=== PATIENT | female | born 1950 | race Caucasian/White ===

== ENCOUNTER → 2017-04-10 | Outpatient (CLI) | payer OTHER ==
[2017-04-10 10:21] LABS: ABSOLUTE EOSINOPHILS # (AUTO) 0.1 10^3/uL (0.0-0.6); ABSOLUTE LYMPHOCYTES (AUTO) 1.3 10^3/uL (0.5-4.7); ABSOLUTE MONOCYTES (AUTO) 0.7 10^3/uL (0.1-1.4); ABSOLUTE NEUT (AUTO) 2.7 10^3/uL (1.7-8.2); BASOPHILS % (AUTO) 0.6 % (0-2); EOSINOPHILS % (AUTO) 2.9 % (0-6); HEMATOCRIT 40.8 % (36.0-47.0); HEMOGLOBIN 13.9 g/dL (12.0-15.5); HGB HCT DIFFERENCE 0.9; MEAN CORPUSCULAR HEMOGLOBIN 32.4 pg (27.0-33.4); MEAN CORPUSCULAR HGB CONC 34.2 g/dL (32.0-36.0); MEAN CORPUSCULAR VOLUME 95 fl (80-97); MONOCYTES % (AUTO) 14.5 % (3-13); RED CELL DISTRIBUTION WIDTH 14.3 % (11.5-14.0); WHITE BLOOD COUNT 4.9 10^3/uL (4.0-10.5)
[2017-04-10 11:06] LABS: ALANINE AMINOTRANSFERASE 29 U/L (9-52); ALBUMIN 4.7 g/dL (3.5-5.0); ALKALINE PHOSPHATASE 108 U/L (38-126); ANION GAP 10 (5-19); ASPARTATE AMINO TRANSFERASE 33 U/L (14-36); BILIRUBIN,DIRECT 0.5 mg/dL (0.0-0.4); BILIRUBIN,TOTAL 0.6 mg/dL (0.2-1.3); BLOOD UREA NITROGEN 12 mg/dL (7-20); CALCIUM 9.7 mg/dL (8.4-10.2); CARBON DIOXIDE 28 mmol/L (22-30); CHLORIDE 98 mmol/L (98-107); CHOLESTEROL 191.32 mg/dL (0-200); Direct HDL 102 mg/dL (>40); GLUCOSE 92 mg/dL (75-110); IRON 75.4 ug/dL (37-170); POTASSIUM 4.9 mmol/L (3.6-5.0); SODIUM 136.2 mmol/L (137-145); TOTAL PROTEIN 8.1 g/dL (6.3-8.2); TRIGLYCERIDES 50 mg/dL (<150)
[2017-04-10 11:19] LABS: DIRECT LDL 73 mg/dL (<100)
== END ==
LOC: CCC 08:27
DX: I10 Essential (primary) hypertension (principal); J45.909 Unspecified asthma, uncomplicated; J44.9 Chronic obstructive pulmonary disease, unspecified; D64.9 Anemia, unspecified; E78.4 Other hyperlipidemia
CPT/HCPCS: 36415; 80053; 80061; 82728; 83036; 83540; 84443; 85025

== ENCOUNTER 2018-06-11 11:33 | Emergency (ER) | payer MEDICARE ==
[2018-06-11] MEDS ORDERED: PREDNISONE 20 MG TABLET PO ONE (11:45)
[2018-06-11] MEDS ORDERED: IPRATROPIUM/ALBUTEROL 0.5-2.5 MG/3 ML AMPUL NEB ONE (11:45)
--- NOTE | 2018-06-11 11:48 | ER Document Report ---
ED Medical Screen (RME) - General Chief Complaint: Breathing Difficulty Stated Complaint: DIFFICULTY BREATHING Time Seen by Provider: 06/11/18 11:42 Notes: 68-year-old female patient with COPD developed increased shortness of breath about 630 this morning. There is no cough associated with this. She does not think she has been running fevers. She was seen here about 5 weeks ago with a COPD exacerbation was prescribed a 3-day course of high-dose prednisone at that time. Not sure if that prescription was never filled based on review of the pharmacy reporting. She does use Advair, and ProAir air. There is some high-pitched expiratory wheezes and some expiratory wheezes heard with deep breath and cough. I have greeted and performed a rapid initial assessment of this patient. A comprehensive ED assessment and evaluation of the patient, analysis of test results and completion of the medical decision making process will be conducted by additional ED providers. TRAVEL OUTSIDE OF THE [place] IN LAST 30 DAYS: No - Related Data Allergies/Adverse Reactions: cetirizine HCl [From [employer]] Allergy (Verified 06/11/18 11:34) Past Medical History - Social History Frequency of alcohol use: None Drug Abuse: None - Past Medical History Cardiac Medical History: Reports: Hx Hypertension Pulmonary Medical History: Reports: Hx Asthma, Hx COPD Neurological Medical History: Reports: Hx Cerebrovascular Accident. Denies: Hx Seizures Endocrine Medical History: Reports: Hx Diabetes Mellitus Type 2 Renal/ Medical History: Denies: Hx Peritoneal Dialysis GI Medical History: Denies: Hx Colonoscopy - no prior colonoscopy per patient. Past Surgical History: Reports: Hx Carotid Endarterectomy - Left carotid endarterectomy. Denies: Hx Hysterectomy - Immunizations Immunizations up to date: Yes Physical Exam - Vital signs Vitals: Temp Pulse Resp BP Pulse Ox 97.9 F 100 18 152/68 H 97 06/11/18 11:39 06/11/18 11:39 06/11/18 11:39 06/11/18 11:39 06/11/18 11:39 Course - Vital Signs Vital signs: Temp Pulse Resp BP Pulse Ox 97.9 F 100 18 152/68 H 97 06/11/18 11:39 06/11/18 11:39 06/11/18 11:39 06/11/18 11:39 06/11/18 11:39 Doctor's Discharge - Discharge Referrals: STEPHEN TEJEDA NP [Primary Care Provider] - Follow up as needed
[2018-06-11 12:26] LABS: ABSOLUTE EOSINOPHILS # (AUTO) 0.2 10^3/uL (0.0-0.6); ABSOLUTE LYMPHOCYTES (AUTO) 0.9 10^3/uL (0.5-4.7); ABSOLUTE MONOCYTES (AUTO) 0.7 10^3/uL (0.1-1.4); BASOPHILS % (AUTO) 0.9 % (0-2); EOSINOPHILS % (AUTO) 5.7 % (0-6); HEMATOCRIT 38.6 % (36.0-47.0); HEMOGLOBIN 13.5 g/dL (12.0-15.5); LYMPHOCYTES % (AUTO) 22.5 % (13-45); MEAN CORPUSCULAR HEMOGLOBIN 32.7 pg (27.0-33.4); MEAN CORPUSCULAR VOLUME 94 fl (80-97); MONOCYTES % (AUTO) 17.8 % (3-13); PLATELET COUNT 350 10^3/uL (150-450); RED BLOOD COUNT 4.12 10^6/uL (3.72-5.28); RED CELL DISTRIBUTION WIDTH 14.4 % (11.5-14.0); SEGMENTED NEUTROPHILS % (AUTO) 53.1 % (42-78); TOTAL CELLS COUNTED % (AUTO) 100 %; WHITE BLOOD COUNT 3.8 10^3/uL (4.0-10.5)
--- NOTE | 2018-06-11 12:27 | ER Document Report ---
ED Respiratory Problem - General Chief Complaint: Breathing Difficulty Stated Complaint: DIFFICULTY BREATHING Time Seen by Provider: 06/11/18 11:42 Mode of Arrival: Ambulatory Information source: Patient Notes: Chief complaint: Shortness of breath History of complain:68-year-old female patient with COPD developed increased shortness of breath about 630 this morning. There is no cough associated with this. She does not think she has been running fevers. She was seen here about 5 weeks ago with a COPD exacerbation was prescribed a 3-day course of high-dose prednisone at that time. Not sure if that prescription was never filled based on review of the pharmacy reporting. Smoking about 4-5 cigarettes a day. No fever chills or other constitutional symptoms She does use Advair, and ProAir air. Onset: As above Duration: As above Severity: Moderate Quality: Wheezing Context: COPD and smoking Exacerbating factor and relieving factors: Exertion REVIEW OF SYSTEMS: CONSTITUTIONAL : Denies fever, chills, or sweats. Denies recent illness. EENT: Denies eye, ear, throat, or mouth pain or symptoms. Denies nasal or sinus congestion or discharge. Denies throat, tongue, or mouth swelling or difficulty swallowing. CARDIOVASCULAR: Denies chest pain. Denies palpitations or racing or irregular heart beat. Denies ankle edema. RESPIRATORY: Denies cough, cold, or chest congestion. Denies shortness of breath, difficulty breathing, or wheezing. GASTROINTESTINAL: Denies abdominal pain or distention. Denies nausea, vomiting , or diarrhea. Denies blood in vomitus, stools, or per rectum. Denies black, tarry stools. Denies constipation. GENITOURINARY: Denies difficulty urinating, painful urination, burning, frequency, blood in urine, or discharge. MUSCULOSKELETAL: Denies back or neck pain or stiffness. Denies joint pain or swelling. SKIN: Denies rash, lesions or sores. HEMATOLOGIC : Denies easy bruising or bleeding. LYMPHATIC: Denies swollen, enlarged glands. NEUROLOGICAL: Denies confusion or altered mental status. Denies passing out or loss of consciousness. Denies dizziness or lightheadedness. Denies headache. Denies weakness or paralysis or loss of use of either side. Denies problems with gait or speech. Denies sensory loss, numbness, or tingling. Denies seizures. PSYCHIATRIC: Denies anxiety or stress. Denies depression, suicidal ideation, or homicidal ideation. ALL OTHER SYSTEMS REVIEWED AND NEGATIVE. Dictation was performed using [employer] voice recognition software PHYSICAL EXAMINATION: GENERAL: Cachexia of chronic lung disease and in no acute distress. HEAD: Atraumatic, normocephalic. EYES: Pupils equal round and reactive to light, extraocular movements intact, sclera anicteric, conjunctiva are normal. ENT: Nares patent, oropharynx clear without exudates. Moist mucous membranes. NECK: Normal range of motion, supple without lymphadenopathy LUNGS: Breath sounds .... . Bilaterally decreased breath sounds with scattered wheezing no rales HEART: Regular rate and rhythm without murmurs ABDOMEN: Soft, nontender, nondistended abdomen. No guarding, no rebound. No masses appreciated. Musculoskeletal: Normal range of motion, no pitting or edema. No cyanosis. NEUROLOGICAL: Cranial nerves grossly intact. Normal speech, normal gait. Normal sensory, motor exams PSYCH: Normal mood, normal affect. SKIN: Warm, Dry, normal turgor, no rashes or lesions noted. TRAVEL OUTSIDE OF THE [place] IN LAST 30 DAYS: No - HPI Notes: Dictated - Related Data Allergies/Adverse Reactions: cetirizine HCl [From [employer])] Allergy (Verified 06/11/18 11:34) Past Medical History - Social History Smoking Status: Current Every Day Smoker Frequency of alcohol use: None Drug Abuse: None Lives with: Family Family History: Reviewed & Not Pertinent Patient has suicidal ideation: No Patient has homicidal ideation: No - Past Medical History Cardiac Medical History: Reports: Hx Hypertension Pulmonary Medical History: Reports: Hx Asthma, Hx COPD Neurological Medical History: Reports: Hx Cerebrovascular Accident. Denies: Hx Seizures Endocrine Medical History: Reports: Hx Diabetes Mellitus Type 2 Renal/ Medical History: Denies: Hx Peritoneal Dialysis GI Medical History: Denies: Hx Colonoscopy - no prior colonoscopy per patient. Past Surgical History: Reports: Hx Carotid Endarterectomy - Left carotid endarterectomy. Denies: Hx Hysterectomy - Immunizations Immunizations up to date: Yes Review of Systems - Review of Systems Notes: Dictated Physical Exam - Vital signs Vitals: Temp Pulse Resp BP Pulse Ox 97.9 F 100 18 152/68 H 97 06/11/18 11:39 06/11/18 11:39 06/11/18 11:39 06/11/18 11:39 06/11/18 11:39 - Notes Notes: Dictated Course - Vital Signs Vital signs: Temp Pulse Resp BP Pulse Ox 97.9 F 100 20 143/64 H 98 06/11/18 11:39 06/11/18 11:39 06/11/18 14:01 06/11/18 14:01 06/11/18 14:01 - Laboratory Result Diagrams: 06/11/18 12:05 06/11/18 12:05 Laboratory results interpreted by me: 06/11/18 06/11/18 12:05 12:05 WBC 3.8 L RDW 14.4 H Monocytes % 17.8 H Sodium 133.3 L Chloride 95 L Glucose 138 H Direct Bilirubin 0.5 H - Diagnostic Test Radiology reviewed: Image reviewed - Chest x-ray one view shows no infiltration effusion or pneumothorax chronic COPD pattern., Reports reviewed Discharge - Discharge Clinical Impression: COPD (chronic obstructive pulmonary disease) Qualifiers: COPD type: COPD with acute exacerbation Qualified Code(s): J44.1 - Chronic obstructive pulmonary disease with (acute) exacerbation Condition: Fair Disposition: HOME, SELF-CARE Instructions: Chronic Obstructive Lung Disease ([facility]) Prescriptions: Prednisone [Sterapred Ds] 1 pkg PO ASDIR PRN 12 Days [email or web address] PRN Reason: Referrals: STEPHEN TEJEDA NP [Primary Care Provider] - Follow up as needed
[2018-06-11 12:47] LABS: ALANINE AMINOTRANSFERASE 25 U/L (9-52); ALBUMIN 4.2 g/dL (3.5-5.0); ALKALINE PHOSPHATASE 75 U/L (38-126); ANION GAP 9 (5-19); ASPARTATE AMINO TRANSFERASE 36 U/L (14-36); BILIRUBIN,DIRECT 0.5 mg/dL (0.0-0.4); BILIRUBIN,TOTAL 0.7 mg/dL (0.2-1.3); BLOOD UREA NITROGEN 7 mg/dL (7-20); CALCIUM 9.6 mg/dL (8.4-10.2); CARBON DIOXIDE 29 mmol/L (22-30); CHLORIDE 95 mmol/L (98-107); GLUCOSE 138 mg/dL (75-110); POTASSIUM 4.4 mmol/L (3.6-5.0); SODIUM 133.3 mmol/L (137-145); TOTAL PROTEIN 7.3 g/dL (6.3-8.2)
--- NOTE | 2018-06-11 14:52 | RADIOLOGY REPORT (SQ) ---
EXAM DESCRIPTION: CHEST SINGLE VIEW COMPLETED DATE/TIME: 06/11/2018 2:43 pm REASON FOR STUDY: Shortness of breath shortness of breath COMPARISON: 05/09/2018 EXAM PARAMETERS: NUMBER OF VIEWS: One view. TECHNIQUE: Single frontal radiographic view of the chest acquired. RADIATION DOSE: NA LIMITATIONS: None. FINDINGS: LUNGS AND PLEURA: The lungs are hyperexpanded. There is no infiltrate or effusion. A sma ll granuloma is seen in the left lung. MEDIASTINUM AND HILAR STRUCTURES: No masses. Contour normal. HEART AND VASCULAR STRUCTURES: Heart normal in size. Normal vasculature. BONES: No acute findings. HARDWARE: None in the chest. OTHER: No other significant finding. IMPRESSION: Chronic lung changes with no acute cardiopulmonary disease. TECHNICAL DOCUMENTATION: JOB ID: [id number] [employer]- All Rights Reserved Reading location - IP/workstation name: [email or web address]
[2018-06-11 15:04] VITALS: BP 140/60
[2018-06-11] MEDS ORDERED: ALBUTEROL SULFATE HFA (90 MCG/PUFF) 200 PUFF/8.5 GM MDI IH ONE (15:16)
== END 2018-06-11 15:27 | disposition home or self-care (01) ==
LOC: ER 11:33
DX: J44.1 Chronic obstructive pulmonary disease with (acute) exacerbation (principal); R06.02 Shortness of breath; F17.200 Nicotine dependence, unspecified, uncomplicated; I10 Essential (primary) hypertension
CPT/HCPCS: 94640; 99285; 36415; 87040; 85025; 80053; 71045; A9270 ×2; J3490; J7512; J7620

== ENCOUNTER 2019-05-01 23:18 | Emergency (ER) | payer MEDICARE ==
[2019-05-01] MEDS ORDERED: IPRATROPIUM/ALBUTEROL 0.5-2.5 MG/3 ML AMPUL NEB ONE (23:54)
[2019-05-01] MEDS ORDERED: METHYLPREDNISOLONE INJ 125 MG/2 ML SDV IV ONE (23:54)
--- NOTE | 2019-05-02 00:03 | ER Document Report ---
ED Respiratory Problem - General Chief Complaint: Breathing Difficulty Stated Complaint: TROUBLE BREATHING Time Seen by Provider: 05/01/19 23:48 Primary Care Provider: STEPHEN TEJEDA NP [NURSE PRACTITIONER] - Follow up as needed Notes: Patient is a 69-year-old female that comes emergency department for chief compl aint of shortness of breath. She states that she got up to go to the bathroom, she started feeling a lot of difficulty breathing, she almost did not make it back to her bedroom, she states she then used her inhaler. She states now she actually feels a lot better. She denies chest pain, dizziness, cough, fever, nausea/vomiting. She has a history of asthma and COPD, she continues to smoke. Only other reported medical history is hypertension. TRAVEL OUTSIDE OF THE [place] IN LAST 30 DAYS: No - Related Data Allergies/Adverse Reactions: cetirizine HCl [From [employer]] Allergy (Verified 06/11/18 11:34) Past Medical History - General Information source: Patient - Social History Smoking Status: Current Every Day Smoker Smoking Education Provided: Yes - <3 min Frequency of alcohol use: None Drug Abuse: None Lives with: Family Family History: Reviewed & Not Pertinent - Past Medical History Cardiac Medical History: Reports: Hx Hypertension Pulmonary Medical History: Reports: Hx Asthma, Hx COPD Neurological Medical History: Reports: Hx Cerebrovascular Accident. Denies: Hx Seizures Endocrine Medical History: Reports: Hx Diabetes Mellitus Type 2 Renal/ Medical History: Denies: Hx Peritoneal Dialysis GI Medical History: Denies: Hx Colonoscopy - no prior colonoscopy per patient. Past Surgical History: Reports: Hx Carotid Endarterectomy - Left carotid endarterectomy. Denies: Hx Hysterectomy - Immunizations Immunizations up to date: Yes Review of Systems - Review of Systems Constitutional: No symptoms reported EENT: No symptoms reported Cardiovascular: No symptoms reported Respiratory: See HPI Gastrointestinal: No symptoms reported Genitourinary: No symptoms reported Female Genitourinary: No symptoms reported Musculoskeletal: No symptoms reported Skin: No symptoms reported Hematologic/Lymphatic: No symptoms reported Neurological/Psychological: No symptoms reported Physical Exam - Vital signs Vitals: Temp Pulse Resp BP Pulse Ox 98 F 103 H 26 H 160/112 H 96 05/01/19 23:24 05/01/19 23:24 05/01/19 23:24 05/01/19 23:24 05/01/19 23:24 - Notes Notes: GENERAL: Alert, interacts well. No acute distress. HEAD: Normocephalic, atraumatic. EYES: Pupils equal, round, and reactive to light. Extraocular movements intact. ENT: Oral mucosa moist, tongue midline. Oropharynx unremarkable. Airway patent. LUNGS: Few scattered coarse breath sounds and expiratory wheezes. No tachypnea or labored breathing. Clear lungs otherwise. HEART: Regular rate and rhythm. No murmur ABDOMEN: Soft, non-tender. Non-distended. Bowel sounds present in all 4 quadrants. GENITOURINARY: Deferred EXTREMITIES: Moves all 4 extremities spontaneously. No edema, normal radial and dorsalis pedis pulses bilaterally. No cyanosis. BACK: no cervical, thoracic, lumbar midline tenderness. No saddle anesthesia, normal distal neurovascular exam. Moves all extremities in full range of motion. NEUROLOGICAL: Alert and oriented x3. Normal speech. Cranial nerves II through XII grossly intact. PSYCH: Normal affect, normal mood. SKIN: Warm, dry, normal turgor. No rashes or lesions noted. Course - Re-evaluation Re-evalutation: On my evaluation patient is surprisingly well-appearing. She has minimal wheezing with good breath sounds. She has no tachypnea or labored breathing. She has no hypoxia on room air. No fever. No complaints otherwise. CBC, blood gas, chest x-ray, chemistry, troponin, EKG without acute findings. On reevaluation after single DuoNeb and Solu-Medrol wheezing completely resolved. Patient states she feels great and she wants to go home. Consistent with COPD exacerbation. Discussed smoking cessation, placing on steroids, discussed follow-up and return precautions. Patient and family at bedside state understanding and agreement. Stable at time of discharge. - Vital Signs Vital signs: Temp Pulse Resp BP Pulse Ox 98.3 F 91 22 H 134/68 H 95 05/02/19 01:59 05/01/19 23:24 05/02/19 01:59 05/02/19 02:00 05/02/19 01:59 - Laboratory Result Diagrams: 05/02/19 00:29 05/02/19 00:29 Laboratory results interpreted by me: 05/02/19 05/02/19 00:29 00:29 RDW 15.0 H [place] % (Auto) 18.8 H Sodium 135.4 L - EKG Interpretation by Me Additional EKG results interpreted by me: EKG shows sinus rhythm at a rate of 87, PACs are present, normal axis, no T wave inversions or ST segment changes in consecutive leads. QTC of 424. Discharge - Discharge Clinical Impression: Wheezing, COPD exacerbation Condition: Stable Disposition: HOME, SELF-CARE Additional Instructions: Your work-up is reassuring. Continue your home albuterol and Advair treatments, take the prednisone as prescribed, follow-up closely with primary care. Stop smoking. Return if you worsen including difficulty breathing, fever, passing out, chest pain, or any other concerning or worsening symptoms. Prescriptions: Prednisone [Deltasone 20 mg Tablet] 2 tab PO DAILY 5 Days #10 tablet Albuterol Sulfate [Proair HFA Inhalation Aerosol 8.5 gm MDI] 2 puff IH Q4H PRN #1 mdi PRN Reason: Referrals: STEPHEN TEJEDA NP [NURSE PRACTITIONER] - Follow up as needed
[2019-05-02 00:43] LABS: ABSOLUTE EOSINOPHILS # (AUTO) 0.4 10^3/uL (0.0-0.6); ABSOLUTE LYMPHOCYTES (AUTO) 1.6 10^3/uL (0.5-4.7); ABSOLUTE MONOCYTES (AUTO) 1.2 10^3/uL (0.1-1.4); ABSOLUTE NEUT (AUTO) 3.3 10^3/uL (1.7-8.2); BASOPHILS % (AUTO) 0.6 % (0-2); EOSINOPHILS % (AUTO) 5.6 % (0-6); HEMATOCRIT 37.7 % (36.0-47.0); HEMOGLOBIN 12.7 g/dL (12.0-15.5); LYMPHOCYTES % (AUTO) 24.1 % (13-45); MEAN CORPUSCULAR HEMOGLOBIN 31.8 pg (27.0-33.4); MEAN CORPUSCULAR HGB CONC 33.8 g/dL (32.0-36.0); MEAN CORPUSCULAR VOLUME 94 fl (80-97); MONOCYTES % (AUTO) 18.8 % (3-13); PLATELET COUNT 319 10^3/uL (150-450); SEGMENTED NEUTROPHILS % (AUTO) 50.9 % (42-78); TOTAL CELLS COUNTED % (AUTO) 100 %; WHITE BLOOD COUNT 6.5 10^3/uL (4.0-10.5)
--- NOTE | 2019-05-02 00:46 | RADIOLOGY REPORT (SQ) ---
EXAM DESCRIPTION: [facility]: XR CHEST 1 VIEW CLINICAL HISTORY: 69 years Female, shortness of breath COMPARISON: 06/11/2018 FINDINGS: Lungs are hyperinflated as on prior exam. 5 mm calcified granuloma in the lateral left lower lobe is unchanged. No acute infiltrate, effusion, or pneumothorax. Mediastinum is within normal limits for this positioning. Bony structures are unremarkable. IMPRESSION: 1. No acute pulmonary findings. 2. No change since 06/11/2018
[2019-05-02 00:56] LABS: VENOUS BLOOD BASE EXCESS -1.8 mmol/L; VENOUS BLOOD HCO3 24.3 mmol/L (20-32); VENOUS BLOOD PCO2 46.3 mmHg (35-63); VENOUS BLOOD PH 7.34 (7.30-7.42)
[2019-05-02 01:22] LABS: ANION GAP 7 (5-19); BLOOD UREA NITROGEN 13 mg/dL (7-20); CALCIUM 9.6 mg/dL (8.4-10.2); CARBON DIOXIDE 29 mmol/L (22-30); CHLORIDE 99 mmol/L (98-107); GLUCOSE 100 mg/dL (75-110)
[2019-05-02 02:27] VITALS: BP 134/68
--- NOTE | 2019-05-02 09:28 | EKG REPORT ---
SEVERITY:- OTHERWISE NORMAL ECG - SINUS RHYTHM ATRIAL PREMATURE COMPLEX : Confirmed by: Radha Eaton MD 02-May-2019 09:28:42
== END 2019-05-02 02:27 | disposition home or self-care (01) ==
LOC: ER 23:18
DX: J44.1 Chronic obstructive pulmonary disease with (acute) exacerbation (principal); F17.200 Nicotine dependence, unspecified, uncomplicated; I10 Essential (primary) hypertension; E11.9 Type 2 diabetes mellitus without complications
CPT/HCPCS: 93005; 36415; 85025; 80048; 84484; 82803; 71045; 93010; J2930; A9270; J7620

== ENCOUNTER 2019-05-09 03:41 | Emergency (ER) | payer MEDICARE ==
--- NOTE | 2019-05-09 04:33 | RADIOLOGY REPORT (SQ) ---
EXAM DESCRIPTION: XR CHEST 1 VIEW COMPLETED DATE/TME: 05/09/2019 03:53 CLINICAL HISTORY: 69 years Female, shortness of breath COMPARISON:May 02 2019 NUMBER OF VIEWS/TECHNIQUE: 1/AP FINDINGS: Increased lung volume, clear parenchyma, normal cardiac silhouette, and intact bony thorax.Old granulomatous disease. Atherosclerotic vascular disease. IMPRESSION: No acute cardiopulmonary findings.
[2019-05-09 04:40] LABS: ABSOLUTE BASOPHILS # (AUTO) 0.1 10^3/uL (0.0-0.2); ABSOLUTE EOSINOPHILS # (AUTO) 0.1 10^3/uL (0.0-0.6); ABSOLUTE LYMPHOCYTES (AUTO) 4.4 10^3/uL (0.5-4.7); ABSOLUTE MONOCYTES (AUTO) 2.3 10^3/uL (0.1-1.4); BASOPHILS % (AUTO) 0.5 % (0-2); EOSINOPHILS % (AUTO) 1.1 % (0-6); HEMATOCRIT 38.2 % (36.0-47.0); HEMOGLOBIN 12.9 g/dL (12.0-15.5); LYMPHOCYTES % (AUTO) 36.8 % (13-45); MEAN CORPUSCULAR HEMOGLOBIN 31.6 pg (27.0-33.4); MEAN CORPUSCULAR HGB CONC 33.7 g/dL (32.0-36.0); MEAN CORPUSCULAR VOLUME 94 fl (80-97); MONOCYTES % (AUTO) 19.4 % (3-13); RED BLOOD COUNT 4.07 10^6/uL (3.72-5.28); RED CELL DISTRIBUTION WIDTH 14.8 % (11.5-14.0); SEGMENTED NEUTROPHILS % (AUTO) 42.2 % (42-78); TOTAL CELLS COUNTED % (AUTO) 100 %; WHITE BLOOD COUNT 11.8 10^3/uL (4.0-10.5)
[2019-05-09] MEDS ORDERED: MAGNESIUM SULFATE/D5W 1 GM/100 ML RTUPB IV ONE (04:41)
--- NOTE | 2019-05-09 05:11 | ER Document Report ---
ED General - General Chief Complaint: Shortness Of Breath Stated Complaint: DIFFICULTY BREATHING Time Seen by Provider: 05/09/19 03:45 Primary Care Provider: ARSLAN TEJEDA MD [Primary Care Provider] - Follow up in 3-5 days Notes: Patient is a 69-year-old female with asthma and COPD that presents to the emergency department for chief complaint of shortness of breath. Patient states that she has been having flareups of her COPD recently, was seen in the ER about a week ago, and given 5 days of prednisone, but her symptoms seem to flareup around 1 AM this morning, she tried her albuterol and a breathing treatment without much improvement, so she called EMS, she is given 2 breathing treatments by EMS and she feels much better now, and her shortness of breath is completely resolved. She did not have any chest pain at any point, and denies any nausea, vomiting, fevers, chills, night sweats or productive cough. She is not on home oxygen. Overall she feels well at this time. No other complaints. Past Medical History: COPD, asthma, peripheral vascular disease Past Surgical History: Carotid endarterectomy Social History: Admits to smoking cigarettes, denies alcohol or drug use. Family History: Reviewed and noncontributory for presenting illness Allergies: Reviewed, see documented allergy list. REVIEW OF SYSTEMS: Other than noted above, the 12 point review of systems was reviewed with the pat ient and were negative, all pertinent findings are included in the HPI. PHYSICAL EXAMINATION: Vital signs reviewed, nursing noted reviewed. GENERAL: Well-appearing, well-nourished and in no acute distress. HEAD: Atraumatic, normocephalic. EYES: Eyes appear normal, extraocular movements intact, sclera anicteric, conjunctiva are normal. ENT: nares patent, oropharynx clear without exudates. Moist mucous membranes. NECK: Normal range of motion, supple without lymphadenopathy LUNGS: Diminished lung sounds, with faint wheezing, but no increased work of breathing, no respiratory distress. HEART: Regular rate and rhythm without murmurs ABDOMEN: Soft, nontender, normoactive bowel sounds. No rebound, guarding, or rigidity. No masses appreciated. EXTREMITIES: Nontender, good range of motion, no pitting or edema. NEUROLOGICAL: No focal neurological deficits. Moves all extremities sp ontaneously Motor and sensory grossly intact on exam. PSYCH: Normal mood, normal affect. SKIN: Warm, Dry, normal turgor, no rashes or lesions noted on exposed skin TRAVEL OUTSIDE OF THE [place] IN LAST 30 DAYS: No - Related Data Allergies/Adverse Reactions: cetirizine HCl [From [employer]] Allergy (Verified 06/11/18 11:34) Past Medical History - Social History Smoking Status: Current Every Day Smoker Family History: Reviewed & Not Pertinent Patient has suicidal ideation: No Patient has homicidal ideation: No - Past Medical History Cardiac Medical History: Reports: Hx Hypertension Pulmonary Medical History: Reports: Hx Asthma, Hx COPD Neurological Medical History: Reports: Hx Cerebrovascular Accident. Denies: Hx Seizures Endocrine Medical History: Reports: Hx Diabetes Mellitus Type 2 Renal/ Medical History: Denies: Hx Peritoneal Dialysis GI Medical History: Denies: Hx Colonoscopy - no prior colonoscopy per patient. Past Surgical History: Reports: Hx Carotid Endarterectomy - Left carotid endarterectomy. Denies: Hx Hysterectomy - Immunizations Immunizations up to date: Yes Physical Exam - Vital signs Vitals: Pulse Ox 100 05/09/19 03:44 Course - Re-evaluation Re-evalutation: Patient seen and examined vital signs reviewed. Laboratory data and/or imaging were ordered as appropriate for the patient's presenting symptoms and complaint, with consideration of any critical or life threatening conditions that may be associated with their obtained history and exam as noted above. Patient was treated with IV Solu-Medrol, and DuoNeb breathing treatments by EMS, her lung sounds are only mildly diminished at this point, did not feel she needs any further breathing treatments, will give IV magnesium. Results were reviewed when available and demonstrated unremarkable work-up, negative chest x-ray The patient was re-evaluated and was stable and improved Evaluation was most consistent with acute exacerbation of COPD, patient likely does needs longer steroid taper, will put her on a 15-day steroid taper, and have her follow-up with primary care. Results were discussed with the patient at this point, after careful consideration I feel that that patient can be discharged from the emergency department, the patient was educated treatments and reasons to return to the emergency department based on their presumed diagnosis as noted above, they were advised to followup with a primary care physician in 2-3 days. Patient was agreeable to plan of care. *Note is created using voice recognition software and may contain spelling, syntax or grammatical errors. Laboratory 05/09/19 05/09/19 03:55 03:55 Sodium Cancelled Potassium Cancelled Chloride Cancelled Carbon Dioxide Cancelled Anion Gap Cancelled BUN Cancelled Creatinine Cancelled Est GFR ( Amer) Cancelled Est GFR (Non-Af Amer) Cancelled Est GFR (MDRD) Non-Af Cancelled Glucose Cancelled Calcium Cancelled Total Bilirubin Cancelled Direct Bilirubin Cancelled Neonat Total Bilirubin Cancelled Neonat Direct Bilirubin Cancelled Neonat Indirect Bili Cancelled AST Cancelled ALT Cancelled Alkaline Phosphatase Cancelled Troponin I Cancelled Total Protein Cancelled Albumin Cancelled EGFR Cancelled Chest X-Ray 05/09/19 03:53 IMPRESSION: No acute cardiopulmonary findings. - Vital Signs Vital signs: Temp Pulse Resp BP Pulse Ox 97.3 F 18 135/63 H 96 05/09/19 03:58 05/09/19 04:01 05/09/19 04:01 05/09/19 04:01 - Laboratory Result Diagrams: 05/09/19 03:55 05/09/19 03:55 - EKG Interpretation by Me Additional EKG results interpreted by me: EKG demonstrates sinus rhythm with a ventricular rate of 88 bpm, normal axis, normal intervals, no evidence of acute ischemia in this EKG, compared with prior EKG from 05/02/2019, without significant change. Discharge - Discharge Clinical Impression: COPD exacerbation Condition: Stable Disposition: HOME, SELF-CARE Instructions: Chronic Obstructive Lung Disease ([facility]) Additional Instructions: Please use your Advair, and your albuterol as previously directed, I do recommend you use the albuterol for the next 3 to 5 days however at least 2 puffs 3 times daily, if not 4 times daily, and to take the steroid taper as prescribed please follow-up with your primary care physician, call for an appointment on Friday or Friday. Prescriptions: Prednisone 10 mg PO ASDIR #45 tablet Referrals: ARSLAN TEJEDA MD [Primary Care Provider] - Follow up in 3-5 days
[2019-05-09 05:22] LABS: PLATELET COUNT 258 10^3/uL (150-450)
[2019-05-09 05:23] LABS: ALBUMIN 3.6 g/dL (3.5-5.0); ALKALINE PHOSPHATASE 88 U/L (38-126); ANION GAP 5 (5-19); ASPARTATE AMINO TRANSFERASE 21 U/L (14-36); BILIRUBIN,DIRECT 0.2 mg/dL (0.0-0.4); BILIRUBIN,TOTAL 0.5 mg/dL (0.2-1.3); BLOOD UREA NITROGEN 11 mg/dL (7-20); CARBON DIOXIDE 30 mmol/L (22-30); CHLORIDE 99 mmol/L (98-107); GLUCOSE 135 mg/dL (75-110); POTASSIUM 3.8 mmol/L (3.6-5.0); TOTAL PROTEIN 6.1 g/dL (6.3-8.2)
[2019-05-09 06:17] VITALS: BP 128/64
--- NOTE | 2019-05-09 09:36 | EKG REPORT ---
SEVERITY:- ABNORMAL ECG - SINUS RHYTHM PROBABLE LEFT ATRIAL ABNORMALITY NONSPECIFIC INFERIOR ST-T CHANGES : Confirmed by: Felix Chapman MD 09-May-2019 09:35:26
== END 2019-05-09 06:09 | disposition home or self-care (01) ==
LOC: ER 03:41
DX: J44.1 Chronic obstructive pulmonary disease with (acute) exacerbation (principal); F17.210 Nicotine dependence, cigarettes, uncomplicated; I10 Essential (primary) hypertension; E11.51 Type 2 diabetes mellitus with diabetic peripheral angiopathy without gangrene; Z88.8 Allergy status to other drugs, medicaments and biological substances
CPT/HCPCS: 93005; 99285; 96365; 36415; 85025; 80053; 84484; 71045; 93010; J3475

== ENCOUNTER 2020-02-12 11:06 | Emergency (ER) | payer MEDICARE ==
[2020-02-12] MEDS ORDERED: METHYLPREDNISOLONE INJ 125 MG/2 ML SDV IV ONE (11:48)
--- NOTE | 2020-02-12 11:50 | ER Document Report ---
ED Respiratory Problem - General Chief Complaint: Breathing Difficulty Stated Complaint: DIFFICULTY BREATHING Time Seen by Provider: 02/12/20 11:33 Primary Care Provider: ARSLAN TEJEDA MD [Primary Care Provider] - Follow up as needed Mode of Arrival: Ambulatory Information source: Patient Notes: 69-year-old woman presents to the emergency department with a history of COPD/asthma. As noted she has had increased shortness of breath over the past 2 days. She has been using her home nebulizer x1 this morning, she also uses Advair and a rescue inhaler. States that she is not on steroids. She is a smoker and has continued to smoke greater than half a pack per day. She denies fever, productive cough or chest pain. TRAVEL OUTSIDE OF THE [place] IN LAST 30 DAYS: No - HPI Patient complains to provider of: COPD - Related Data Allergies/Adverse Reactions: cetirizine HCl [From [employer]] Allergy (Verified 02/12/20 13:19) Past Medical History - Social History Smoking Status: Current Every Day Smoker Family History: Reviewed & Not Pertinent - Past Medical History Cardiac Medical History: Reports: Hx Hypertension Pulmonary Medical History: Reports: Hx Asthma, Hx COPD Neurological Medical History: Reports: Hx Cerebrovascular Accident. Denies: Hx Seizures Endocrine Medical History: Reports: Hx Diabetes Mellitus Type 2 Renal/ Medical History: Denies: Hx Peritoneal Dialysis GI Medical History: Denies: Hx Colonoscopy - no prior colonoscopy per patient. Past Surgical History: Reports: Hx Carotid Endarterectomy - Left carotid endarterectomy. Denies: Hx Hysterectomy - Immunizations Immunizations up to date: Yes Review of Systems - Review of Systems Notes: Constitutional: Negative for fever. HENT: Negative for sore throat. Eyes: Negative for visual changes. Cardiovascular: Negative for chest pain. Respiratory: + shortness of breath. Gastrointestinal: Negative for abdominal pain, vomiting or diarrhea. Genitourinary: Negative for dysuria. Musculoskeletal: Negative for back pain. Skin: Negative for rash. Neurological: Negative for headaches, weakness or numbness. 10 point ROS negative except as marked above and in HPI. Physical Exam - Vital signs Vitals: Temp Pulse Resp BP Pulse Ox 98.7 F 80 14 126/59 H 97 02/12/20 11:13 02/12/20 11:13 02/12/20 11:13 02/12/20 11:13 02/12/20 11:13 - Notes Notes: PHYSICAL EXAMINATION: Physical Exam: General: Well-nourished well-developed 69-year-old female in no acute distress HEENT: NC/AT, pupils equal round and reactive to light, MM moist,nares clear, oropharynx clear, airway patent Neck: supple, no adenopathy, no masses. Good range of motion Lungs: clear, no wheezes rales or rhonchi no respiratory distress CVS: Regular rate and rhythm no murmur gallop or rub Abdomen: Soft, active, nontender, no masses, no hepatosplenomegaly Ext: No edema, clubbing or cyanosis. Neuro: Alert and responsive, moving all 4 extremities on command, cranial nerves intact, no focal findings Skin: Intact no open lesions, no rash PSYCH: Normal mood, normal affect. Course - Re-evaluation Re-evalutation: 02/12/20 13:38 Patient is doing well and in no distress, lungs are clear and no difficulty. Chest x-ray is clear, patient received Solu-Medrol in the emergency department I will continue her on a short course of outpatient prednisone. Patient seems to be aware and in agreement with this plan. - Vital Signs Vital signs: Temp Pulse Resp BP Pulse Ox 98.5 F 87 17 136/50 H 96 02/12/20 14:17 02/12/20 14:17 02/12/20 14:17 02/12/20 14:17 02/12/20 14:17 - Diagnostic Test Radiology reviewed: Image reviewed, Reports reviewed - Chest x-ray: No acute findings. Discharge - Discharge Clinical Impression: COPD exacerbation Condition: Good Disposition: HOME, SELF-CARE Instructions: Chronic Obstructive Lung Disease ([facility]) Additional Instructions: You were seen in the emergency department today for your increased difficulty breathing. Please use your inhaler and nebulizer at home continue the Advair as previously prescribed. You are also given a prescription today for short course of prednisone. Please follow-up with your primary care doctor early next week for recheck if you have any difficulty. If your symptoms are worsening and if you have other concerns you may return to the emergency department for further evaluation and treatment HOME CARE INSTRUCTIONS & INFORMATION: Thank you for choosing us for your medical needs. We hope you're satisfied with the care you received. After you leave, you must properly care for your problem and, at the same time, observe its progress. Any condition can change. Some illnesses can change rapidly over hours or days. If your condition worsens, return to the Emergency Department or see your physician promptly. ABOUT YOUR X-RAYS AND EKG'S: If you had an EKG or X-rays taken, they have been read by the Emergency Physician. The X-rays and EKG's will also be read by a Radiologist or Operations Research Engineer within 24 hours. If discrepancies are noted, you will be notified by telephone. Please be certain the ED has a correct telephone number & address where you can be reached. Also, realize that some fractures or abnormalities do not show up on initial X-rays. If your symptoms continue, see your physician. ABOUT YOUR LABORATORY TEST: If you had laboratory tests, the results have been reviewed by the Emergency Physician. Some test results (for example cultures) may not be available for several days. You will be contacted if any test result shows you need additional treatment. Please be certain the ED has a correct telephone number and address where you can be reached. ABOUT YOUR MEDICATIONS: You will receive instructions on how to take your medicine on the prescription label you receive. Additional information may be provided by the Pharmacy. If you have questions afterwards, call the ED for clarification or further instructions. Some prescribed medications may cause drowsiness. Do not perform tasks such as driving a car or operating machinery without consulting your Pharmacist. If you feel you need a refill of pain medication, your condition will need re-evaluation. Please do not call for a refill of any medication. ABOUT YOUR SIGNATURE: Signature of this document acknowledges to followin. Understanding that you received emergency treatment and that you may be released before al medical problems are known or treated. Please be certain th e ED has a correct phone number & address where you can be reached. 2. Acknowledgement that you will arrange for follow-up care as recommended. 3. Authorization for the Emergency Physician to provide information to your follow-up Physician in order to maximize your care. AT ANY TIME, IF YOUR SYMPTOMS CHANGE SIGNIFICANTLY OR WORSEN OR YOU DEVELOP NEW SYMPTOMS, RETURN TO THE EMERGENCY DEPARTMENT IMMEDIATELY FOR RE-EVALUATION. OUR GOAL IS TO PROVIDE EXCELLENT MEDICAL CARE! WE HOPE THAT WE HAVE MET YOUR EXPECTATIONS DURING YOUR EMERGENCY DEPARTMENT VISIT AND THAT YOU FEEL YOU HAVE RECEIVED EXCELLENT CARE! Prescriptions: Prednisone [Deltasone 20 mg Tablet] 1 tab PO BID 5 Days #10 tablet Forms: Return to Work Referrals: ARSLAN TEJEDA MD [Primary Care Provider] - Follow up as needed
--- NOTE | 2020-02-12 12:48 | RADIOLOGY REPORT (SQ) ---
EXAM DESCRIPTION: CHEST 2 VIEWS IMAGES COMPLETED DATE/TIME: 02/12/2020 12:19 pm REASON FOR STUDY: Shortness of breath COMPARISON: 05/09/2019 NUMBER OF VIEWS: Two view. TECHNIQUE: Frontal and lateral radiographic views of the chest acquired. LIMITATIONS: None. FINDINGS: LUNGS AND PLEURA: Calcified granuloma left lower lobe. No evidence of pneumonia or pulmon angel edema. No pleural effusion. Attenuated blood vessels and flattened juliocesar-diaphragms. MEDIASTINUM AND HILAR STRUCTURES: No masses. No contour abnormalities. HEART AND VASCULAR STRUCTURES: Heart normal in size and contour. No evidence for failure. BONES: No acute findings. HARDWARE: None in the chest. OTHER: No other significant finding. IMPRESSION: COPD. NO ACUTE RADIOGRAPHIC FINDING IN THE CHEST. TECHNICAL DOCUMENTATION: JOB ID: [id number] 2010 [employer]- All Rights Reserved Reading location - IP/workstation name: [email or web address]
[2020-02-12 14:19] VITALS: BP 136/50
== END 2020-02-12 14:17 | disposition home or self-care (01) ==
LOC: ER 11:06
DX: J44.1 Chronic obstructive pulmonary disease with (acute) exacerbation (principal); F17.200 Nicotine dependence, unspecified, uncomplicated; I10 Essential (primary) hypertension; E11.9 Type 2 diabetes mellitus without complications; Z86.73 Personal history of transient ischemic attack (TIA), and cerebral infarction without residual deficits
CPT/HCPCS: 99285; 96374; 71046; J2930

== ENCOUNTER 2020-03-01 19:29 | Emergency (ER) | payer MEDICARE ==
--- NOTE | 2020-03-01 20:16 | RADIOLOGY REPORT (SQ) ---
EXAM DESCRIPTION: Portable chest x-ray CLINICAL HISTORY: 69 years Female sob COMPARISON: Chest x-ray 02/12/2020. TECHNIQUE: Upright portable chest x-ray FINDINGS: Cardiomediastinal silhouette is small. Hyperinflation consistent with COPD/emphysema. Small calcified granuloma in the lingula. No acute lung or pleural abnormalities. Recent chest x-ray from 02/12/2020 demonstrated interstitial prominence, pneumonia versus CHF and this appears radiographically resolved. IMPRESSION: Resolution of previous abnormalities. Emphysema. No acute findings.
[2020-03-01 20:18] LABS: ABSOLUTE EOSINOPHILS # (AUTO) 0.1 10^3/uL (0.0-0.6); ABSOLUTE LYMPHOCYTES (AUTO) 2.8 10^3/uL (0.5-4.7); ABSOLUTE MONOCYTES (AUTO) 1.3 10^3/uL (0.1-1.4); ABSOLUTE NEUT (AUTO) 1.8 10^3/uL (1.7-8.2); BASOPHILS % (AUTO) 0.5 % (0-2); EOSINOPHILS % (AUTO) 1.4 % (0-6); HEMATOCRIT 36.3 % (36.0-47.0); HEMOGLOBIN 12.6 g/dL (12.0-15.5); LYMPHOCYTES % (AUTO) 46.7 % (13-45); MEAN CORPUSCULAR HEMOGLOBIN 32.6 pg (27.0-33.4); MEAN CORPUSCULAR HGB CONC 34.7 g/dL (32.0-36.0); MEAN CORPUSCULAR VOLUME 94 fl (80-97); MONOCYTES % (AUTO) 21.6 % (3-13); PLATELET COUNT 326 10^3/uL (150-450); RED BLOOD COUNT 3.87 10^6/uL (3.72-5.28); RED CELL DISTRIBUTION WIDTH 14.4 % (11.5-14.0); SEGMENTED NEUTROPHILS % (AUTO) 29.8 % (42-78); TOTAL CELLS COUNTED % (AUTO) 100 %; WHITE BLOOD COUNT 5.9 10^3/uL (4.0-10.5)
[2020-03-01 20:34] LABS: ALBUMIN 3.6 g/dL (3.5-5.0); ALKALINE PHOSPHATASE 74 U/L (38-126); ASPARTATE AMINO TRANSFERASE 24 U/L (14-36); BILIRUBIN,TOTAL 0.4 mg/dL (0.2-1.3); BLOOD UREA NITROGEN 10 mg/dL (7-20); CALCIUM 9.2 mg/dL (8.4-10.2); GLUCOSE 112 mg/dL (75-110); TOTAL PROTEIN 6.5 g/dL (6.3-8.2)
[2020-03-01 20:39] LABS: ANION GAP 5 (5-19); CARBON DIOXIDE 29 mmol/L (22-30); CHLORIDE 96 mmol/L (98-107)
[2020-03-01] MEDS ORDERED: IPRATROPIUM/ALBUTEROL 0.5-2.5 MG/3 ML AMPUL NEB ONE (21:03)
[2020-03-01 21:10] LABS: APPEARANCE,URINE SLIGHTLY-CLOUDY; BILIRUBIN,URINE NEGATIVE (NEGATIVE); COLOR,URINE YELLOW; GLUCOSE, URINE NEGATIVE (NEGATIVE); KETONES,URINE NEGATIVE (NEGATIVE); LEUKOCYTE ESTERASE,URINE NEGATIVE (NEGATIVE); NITRITE,URINE NEGATIVE (NEGATIVE); PROTEIN,URINE NEGATIVE (NEGATIVE); URINE SPECIFIC GRAVITY 1.006; UROBILINOGEN,URINE NEGATIVE mg/dL (<2.0)
--- NOTE | 2020-03-01 21:38 | ER Document Report ---
ED General - General Chief Complaint: Shortness Of Breath Stated Complaint: SHORTNESS OF BREATH Time Seen by Provider: 03/01/20 20:22 Primary Care Provider: CHARU COHEN MD [ACTIVE STAFF] - Follow up as needed VILMA COLLINS MD [COMMUNITY BASED STAFF] - Follow up as needed ARSLAN TEJEDA MD [Primary Care Provider] - Follow up as needed Mode of Arrival: Medic Information source: Patient TRAVEL OUTSIDE OF THE [place] IN LAST 30 DAYS: No - HPI Onset: This evening Onset/Duration: Gradual Quality of pain: No pain Severity: Moderate Pain Level: Denies Associated symptoms: Nonproductive cough Exacerbated by: Coughing Relieved by: Other - breathing treatments Similar symptoms previously: Yes - with her COPD Recently seen / treated by doctor: No Notes: 69 year old female with a history of COPD, HTN, HLD, prior CVA here in the ER for shortness of breath and trouble breathing in the setting of running out of albuterol for her nebulizer. The patient denies recent fevers, chills, sweats, nausea, vomiting, chest pain, productive cough. The patient was given a duoneb by EMS and 125mg of Solumedrol with improvement of her symptoms prior to Er arrival. The patient was resting comfortably on my arrival to her ER room with no increased work of breathing and no wheezing. - Related Data Allergies/Adverse Reactions: cetirizine HCl [From [facility]] Allergy (Verified 03/01/20 19:36) Past Medical History - General Information source: Patient - Social History Smoking Status: Current Every Day Smoker Frequency of alcohol use: None Drug Abuse: None Family History: Reviewed & Not Pertinent Patient has suicidal ideation: No Patient has homicidal ideation: No - Past Medical History Cardiac Medical History: Reports: Hx Hypercholesterolemia, Hx Hypertension Pulmonary Medical History: Reports: Hx Asthma, Hx COPD Neurological Medical History: Reports: Hx Cerebrovascular Accident. Denies: Hx Seizures Endocrine Medical History: Reports: Hx Diabetes Mellitus Type 2 Renal/ Medical History: Denies: Hx Peritoneal Dialysis GI Medical History: Denies: Hx Colonoscopy - no prior colonoscopy per patient. Past Surgical History: Reports: Hx Carotid Endarterectomy - Left carotid endarterectomy. Denies: Hx Hysterectomy - Immunizations Immunizations up to date: Yes Review of Systems - Review of Systems Constitutional: No symptoms reported EENT: No symptoms reported Cardiovascular: No symptoms reported Respiratory: Cough, Short of breath, Wheezing Gastrointestinal: No symptoms reported Genitourinary: No symptoms reported Female Genitourinary: No symptoms reported Musculoskeletal: No symptoms reported Skin: No symptoms reported Hematologic/Lymphatic: No symptoms reported Neurological/Psychological: No symptoms reported -: Yes All other systems reviewed and negative Physical Exam - Vital signs Vitals: Pulse Ox 98 03/01/20 19:30 - Notes Notes: GENERAL: Well-appearing, well-nourished and in no acute distress. HEAD: Atraumatic, normocephalic. EYES: Pupils equal round and reactive to light, extraocular movements intact, sclera anicteric, conjunctiva are normal. ENT: External ears normal, nares patent, oropharynx clear without exudates. Moist mucous membranes. NECK: Normal range of motion, supple without lymphadenopathy or JVD. LUNGS: Breath sounds clear to auscultation bilaterally and equal. No wheezes rales or rhonchi. HEART: Regular rate and rhythm without murmurs, rubs or gallops. ABDOMEN: Soft, nontender, normoactive bowel sounds. No guarding, no rebound. No masses appreciated. EXTREMITIES: Normal range of motion, no pitting or edema. No clubbing or cyanosis. NEUROLOGICAL: Cranial nerves II through XII grossly intact. Normal speech, normal gait. PSYCH: Normal mood, normal affect. SKIN: Warm, Dry, normal turgor, no rashes or lesions noted. Course - Re-evaluation Re-evalutation: 03/01/20 21:50 The patient is here in the ER for shortness of breath in the setting of running out of her neb treatments at home. EMS gave one neb and a dose of solumedrol. The patient had no wheezing in the ER when I evaluated the patient but she still felt somewhat short of breath so another neb was given in the ER. The patient had unremarkable labs and a clear chest xray. Patient requested scripts for neb treatments which she was given along with a 4 day course of prednisone. The patient was told to follow up with her PCP and to consider follow up with a Bag Filler Machine Operator. Patient is already taking Advair. - Vital Signs Vital signs: Temp Pulse Resp BP Pulse Ox 98.1 F 28 H 128/47 H 96 03/01/20 19:36 03/01/20 20:00 03/01/20 20:01 03/01/20 20:01 - Laboratory Result Diagrams: 03/01/20 19:48 03/01/20 19:48 Laboratory results interpreted by me: 03/01/20 03/01/20 03/01/20 19:48 19:48 20:37 RDW 14.4 H Lymph % (Auto) 46.7 H [place] % (Auto) 21.6 H Seg Neutrophils % 29.8 L Sodium 129.6 L Chloride 96 L Glucose 112 H Urine Ascorbic Acid 40 H - Diagnostic Test Radiology reviewed: Image reviewed, Reports reviewed - EKG Interpretation by Me EKG shows normal: Sinus rhythm, Ransom, Intervals, QRS Complexes Rate: Normal Rhythm: NSR Additional EKG results interpreted by me: 03/01/20 21:45 multiple premature atrial complexes Discharge - Discharge Clinical Impression: Shortness of breath COPD (chronic obstructive pulmonary disease) Qualifiers: COPD type: unspecified COPD Qualified Code(s): J44.9 - Chronic obstructive pulmonary disease, unspecified Condition: Stable Disposition: HOME, SELF-CARE Instructions: Chronic Obstructive Lung Disease ([facility]) Additional Instructions: Take prednisone as prescribed and use breathing treatments as needed as prescribed. Follow up with your primary care doctor and consider follow up with a Bag Filler Machine Operator. Prescriptions: Prednisone [Deltasone 20 mg Tablet] 40 mg PO DAILY 4 Days #8 tablet Ipratropium/Albuterol Sulfate [Duoneb 3 ml Ampul] 3 ml NEB RTQ4 30 Days #1 vial.neb Referrals: ARSLAN TJEEDA MD [Primary Care Provider] - Follow up as needed CHARU COHEN MD [ACTIVE STAFF] - Follow up as needed VILMA COLLINS MD [COMMUNITY BASED STAFF] - Follow up as needed
[2020-03-01 22:20] VITALS: BP 140/72
--- NOTE | 2020-03-02 09:58 | EKG REPORT ---
SEVERITY:- ABNORMAL ECG - SINUS RHYTHM MULTIPLE ATRIAL PREMATURE COMPLEXES PROBABLE LEFT ATRIAL ABNORMALITY : Confirmed by: China Herring 02-Mar-2020 09:58:21
== END 2020-03-01 22:21 | disposition home or self-care (01) ==
LOC: ER 19:29
DX: J43.9 Emphysema, unspecified (principal); J45.909 Unspecified asthma, uncomplicated; I10 Essential (primary) hypertension; R06.02 Shortness of breath; F17.200 Nicotine dependence, unspecified, uncomplicated; E11.9 Type 2 diabetes mellitus without complications; Z88.8 Allergy status to other drugs, medicaments and biological substances
CPT/HCPCS: 93005; 94640; 99285; 36415; 85025; 80053; 81001; 84484; 71045; 93010; A9270; J7620

== ENCOUNTER 2020-03-22 01:26 | Inpatient (IN) | payer MEDICARE ==
--- NOTE | 2020-03-22 03:23 | ER Document Report ---
ED General - General Chief Complaint: Shortness Of Breath Stated Complaint: DIFFICULTY BREATHING Time Seen by Provider: 03/22/20 02:57 Primary Care Provider: ARSLAN TEJEDA MD [Primary Care Provider] - Follow up as needed Mode of Arrival: Medic Information source: Patient, Emergency Med Personnel Notes: 03/22/20 01:47 - ED Nursing Note by CRISTÓBAL VALLES Acct Num: [id number] : 1950 Patient Age: 70 Pt placed on dice person and blood drawn per sepsis protocol. Pt reports relief from SOB after A/a neb treatment. Pt gowned and pending provider evaluation. my notes 70-year-old female arrives by EMS after she woke around midnight with severe shortness of breath and paroxysmal cough. She has a history of hy pertension and COPD and takes Advair Norvasc lovastatin Atrovent routinely. She had 101.4 temperature with a lactic acid of 0.5 per EMS and was given 2 albuterol and Atrovent Combivent treatment prior to arrival as well as 125 mg Solu-Medrol IV. Patient was much improved upon arrival with pulse 120. Tylenol was also given per EMS 975. Patient denies any coronavirus exposure. She has had a history of pneumonia in the past. She feels much better at my exam at 0 315 TRAVEL OUTSIDE OF THE [place] IN LAST 30 DAYS: No - HPI Onset: Just prior to arrival Onset/Duration: Sudden, Better Quality of pain: No pain Severity: Mild Pain Level: 1 Associated symptoms: Shortness of breath Exacerbated by: Deep breathing Relieved by: Other - DuoNeb treatments Similar symptoms previously: No Recently seen / treated by doctor: No - Related Data Allergies/Adverse Reactions: cetirizine HCl [From [facility]] Allergy (Verified 03/01/20 19:36) Past Medical History - General Information source: Patient, Emergency Med Personnel - Social History Smoking Status: Current Every Day Smoker Cigarette use (# per day): Yes Chew tobacco use (# tins/day): No Smoking Education Provided: Yes Frequency of alcohol use: None Drug Abuse: None Family History: Reviewed & Not Pertinent Patient has suicidal ideation: No Patient has homicidal ideation: No - Past Medical History Cardiac Medical History: Reports: Hx Hypercholesterolemia, Hx Hypertension Pulmonary Medical History: Reports: Hx Asthma, Hx COPD Neurological Medical History: Reports: Hx Cerebrovascular Accident. Denies: Hx Seizures Endocrine Medical History: Reports: Hx Diabetes Mellitus Type 2 Renal/ Medical History: Denies: Hx Peritoneal Dialysis GI Medical History: Denies: Hx Colonoscopy - no prior colonoscopy per patient. Past Surgical History: Reports: Hx Carotid Endarterectomy - Left carotid endarterectomy. Denies: Hx Hysterectomy - Immunizations Immunizations up to date: Yes Review of Systems - Review of Systems Constitutional: See HPI, Fever Respiratory: See HPI - Cough, Short of breath Physical Exam - Vital signs Vitals: Temp 100.0 F 03/22/20 01:27 - General General appearance: Alert - HEENT Head: Normocephalic, Atraumatic Eyes: Normal Pupils: PERRL Mucous membranes: Normal Pharynx: Normal Neck: Normal - Respiratory Respiratory status: No respiratory distress Chest status: Nontender Breath sounds: Normal Chest palpation: Normal - Cardiovascular Rhythm: Regular Heart sounds: Normal auscultation Murmur: No - Abdominal Inspection: Normal Distension: No distension - Genitourinary Bimanuel exam: Other - deferred - Back Back: Normal - Extremities General upper extremity: Normal inspection General lower extremity: Normal inspection - Neurological Neuro grossly intact: Yes Cognition: Normal Orientation: AAOx4 Audrey Coma Scale Eye Opening: Spontaneous [place]xton Coma Scale Verbal: Oriented Audrey Coma Scale Motor: Obeys Commands Paxton Coma Scale Total: 15 Speech: Normal Motor strength normal: LUE, RUE, LLE, RLE Sensory: Normal - Psychological Associated symptoms: Normal affect - Skin Skin Temperature: Warm Skin Color: Normal Course - Vital Signs Vital signs: Temp Pulse Resp BP Pulse Ox 100.0 F 22 H 101/63 94 03/22/20 01:36 03/22/20 06:01 03/22/20 06:01 03/22/20 06:01 - Laboratory Result Diagrams: 03/22/20 01:43 03/22/20 01:43 Laboratory results interpreted by me: 03/22/20 03/22/20 03/22/20 01:43 01:43 01:43 WBC 11.3 H Hgb 11.8 L Hct 34.9 L RDW 14.5 H Lymph % (Auto) 11.4 L [place] % (Auto) 18.8 H Absolute Monos (auto) 2.1 H Sodium 128.8 L Creatinine 0.49 L Glucose 192 H NT-Pro-B Natriuret Pep 198 H Albumin 3.3 L Critical Care Note - Critical Care Note Comments: I discussed this case with Dr. Davey Tidwell at 0 550 and he advised admission. He will see the patient in the room. Discharge - Discharge Clinical Impression: Pneumonia Qualifiers: Pneumonia type: due to unspecified organism Laterality: left Lung location: lower lobe of lung Qualified Code(s): J18.9 - Pneumonia, unspecified organism Condition: Good Disposition: ADMITTED INPATIENT Admitting Provider: Dr. Davey Tidwell Unit Admitted: IMCU Referrals: ARSLAN TEJEDA MD [Primary Care Provider] - Follow up as needed
[2020-03-22] MEDS ORDERED: IPRATROPIUM/ALBUTEROL 0.5-2.5 MG/3 ML AMPUL NEB ONE (03:30)
[2020-03-22 03:40] LABS: ABSOLUTE LYMPHOCYTES (AUTO) 1.3 10^3/uL (0.5-4.7); ABSOLUTE MONOCYTES (AUTO) 2.1 10^3/uL (0.1-1.4); ABSOLUTE NEUT (AUTO) 7.8 10^3/uL (1.7-8.2); BASOPHILS % (AUTO) 0.3 % (0-2); EOSINOPHILS % (AUTO) 0.1 % (0-6); HEMATOCRIT 34.9 % (36.0-47.0); HEMOGLOBIN 11.8 g/dL (12.0-15.5); LYMPHOCYTES % (AUTO) 11.4 % (13-45); MEAN CORPUSCULAR HEMOGLOBIN 31.8 pg (27.0-33.4); MEAN CORPUSCULAR HGB CONC 33.9 g/dL (32.0-36.0); MEAN CORPUSCULAR VOLUME 94 fl (80-97); MONOCYTES % (AUTO) 18.8 % (3-13); PLATELET COUNT 263 10^3/uL (150-450); RED BLOOD COUNT 3.72 10^6/uL (3.72-5.28); RED CELL DISTRIBUTION WIDTH 14.5 % (11.5-14.0); SEGMENTED NEUTROPHILS % (AUTO) 69.4 % (42-78); TOTAL CELLS COUNTED % (AUTO) 100 %; WHITE BLOOD COUNT 11.3 10^3/uL (4.0-10.5)
[2020-03-22 03:49] LABS: ALBUMIN 3.3 g/dL (3.5-5.0); ALKALINE PHOSPHATASE 70 U/L (38-126); ANION GAP 5 (5-19); ASPARTATE AMINO TRANSFERASE 27 U/L (14-36); BILIRUBIN,DIRECT 0.1 mg/dL (0.0-0.4); BILIRUBIN,TOTAL 0.7 mg/dL (0.2-1.3); BLOOD UREA NITROGEN 8 mg/dL (7-20); CALCIUM 8.9 mg/dL (8.4-10.2); CARBON DIOXIDE 24 mmol/L (22-30); CHLORIDE 100 mmol/L (98-107); GLUCOSE 192 mg/dL (75-110); POTASSIUM 3.9 mmol/L (3.6-5.0); TOTAL PROTEIN 6.6 g/dL (6.3-8.2)
[2020-03-22 04:00] LABS: CREATINE KINASE MB 0.58 ng/mL (<4.55); NT PRO BNP 198 pg/mL (<125)
[2020-03-22 04:01] LABS: TROPONIN I < 0.012 ng/mL
--- NOTE | 2020-03-22 05:02 | RADIOLOGY REPORT (SQ) ---
CLINICAL INDICATION: sob. TECHNIQUE: A single portable AP view was obtained of the chest at 0416 hours. COMPARISON: March 01, 2020. FINDINGS: The cardiomediastinal silhouette is prominent but stable. The lungs demonstrate patchy airspace disease left lung base, new from prior. This is on a background of chronic change. No evidence of effusion or pneumothorax. Old granulomatous disease. Laxity in the shoulders. IMPRESSION: Left basilar airspace disease, new from prior and likely pneumonia.
[2020-03-22] MEDS ORDERED: CEFTRIAXONE INJ 1000 MG VIAL IV ONE (05:57)
[2020-03-22] MEDS ORDERED: AZITHROMYCIN INJ 500 MG VIAL IV ONE (05:58)
[2020-03-22] MEDS ORDERED: ONDANSETRON HCL INJ/PF 4 MG/2 ML SDV IV PRN ×2 (06:12→14:00)
[2020-03-22] MEDS ORDERED: ACETAMINOPHEN 325 MG TABLET PO PRN (06:12)
--- NOTE | 2020-03-22 06:25 | PDOC H&P ---
History of Present Illness Admission Date/PCP: ARSLAN TEJEDA MD History of Present Illness: SANTO MANDUJANO is a 70 year old female with a history of hypertension, hyperlipidemia, and COPD who presents with shortness of breath. She said it happened around midnight when she got up to go to the bathroom. She said when she went to bed and for several days preceding she felt fine and in her usual state of health. She had an elevated temperature in the ER but she denies having had a fever at home. She denies aspirating or having a history of aspiration. She apparently had a little bit of wheezing when she first came in but after couple of breathing treatments she says she is breathing fine. She is on room air. She does not use oxygen at home. Chest x-ray showed suspicion of a left lower lobe opacity. Past Medical History Cardiac Medical History: Reports: Hyperlipidema, Hypertension Pulmonary Medical History: Reports: Asthma, Chronic Obstructive Pulmonary Disease (COPD) Neurological Medical History: Denies: Seizures Endocrine Medical History: Reports: Diabetes Mellitus Type 2 Past Surgical History Past Surgical History: Reports: Carotid Endarterectomy - Left carotid endarterectomy Denies: Hysterectomy Social History Smoking Status: Current Every Day Smoker Frequency of Alcohol Use: None Hx Recreational Drug Use: No Hx Prescription Drug Abuse: No Family History Family History: Reviewed & Not Pertinent, Hyperlipidemia, Hypertension, Thyroid Disfunction Parental Family History Reviewed: Yes Children Family History Reviewed: Yes Sibling(s) Family History Reviewed.: Yes Medication/Allergy Home Medications: Albuterol Sulfate [Albuterol Sulfate Hfa] 2 puff IH ASDIR PRN 03/23/15 Amlodipine Besylate [Norvasc 10 mg Tablet] 1 tab PO DAILY 03/23/15 Fluticasone/Salmeterol [Advair 250-50 Diskus 28 dose] 1 puff IH BID 03/23/15 Lovastatin 40 mg PO QHS #30 tablet 03/25/15 Prednisone 10 mg PO ASDIR #45 tablet 05/09/19 Prednisone [Deltasone 20 mg Tablet] 1 tab PO BID 5 Days #10 tablet 02/12/20 Ipratropium/Albuterol Sulfate [Duoneb 3 ml Ampul] 3 ml NEB RTQ4 30 Days #1 vial.neb 03/01/20 Prednisone [Deltasone 20 mg Tablet] 40 mg PO DAILY 4 Days #8 tablet 03/01/20 Allergies/Adverse Reactions: cetirizine HCl [From yrte] Allergy (Verified 03/01/20 19:36) Review of Systems All systems: reviewed and no additional remarkable complaints except as stated - All systems were reviewed and were negative except as noted in the HPI Physical Exam Vital Signs: Temp Pulse Resp BP Pulse Ox 100.0 F 30 H 142/107 H 96 03/22/20 01:36 03/22/20 01:36 03/22/20 01:36 03/22/20 01:36 Intake & Output 03/20/20 03/21/20 03/22/20 06:59 06:59 06:59 Weight 39.6 kg General appearance: PRESENT: no acute distress, cooperative, disheveled, hard of hearing, thin Head exam: PRESENT: atraumatic, normocephalic Eye exam: PRESENT: EOMI, PERRLA. ABSENT: conjunctival injection, nystagmus, scleral icterus Ear exam: PRESENT: normal external ear exam Mouth exam: PRESENT: moist, neck supple Teeth exam: PRESENT: edentulous Throat exam: ABSENT: post pharyngeal erythema Neck exam: PRESENT: full ROM. ABSENT: carotid bruit, JVD, lymphadenopathy, meningismus, tenderness, thyromegaly Respiratory exam: PRESENT: clear to auscultation julio, decreased breath sounds, symmetrical, unlabored. ABSENT: accessory muscle use, chest wall tenderness, crackles, prolonged expiratory phas, rhonchi, tachypnea, wheezes Cardiovascular exam: PRESENT: RRR, +S1, +S2 Pulses: PRESENT: normal carotid pulses Vascular exam: PRESENT: normal capillary refill GI/Abdominal exam: PRESENT: normal bowel sounds, soft. ABSENT: distended, guarding, rebound, tenderness Extremities exam: ABSENT: clubbing, pedal edema Musculoskeletal exam: PRESENT: normal inspection. ABSENT: deformity Neurological exam: PRESENT: alert, awake, oriented to person, oriented to place, oriented to situation, CN II-XII grossly intact. ABSENT: motor sensory deficit Psychiatric exam: PRESENT: appropriate affect, normal mood Skin exam: PRESENT: dry, warm Results Laboratory Results: 03/22/20 01:43 03/22/20 01:43 03/22/20 03/22/20 01:43 01:43 WBC 11.3 H RBC 3.72 Hgb 11.8 L Hct 34.9 L MCV 94 MCH 31.8 MCHC 33.9 RDW 14.5 H Plt Count 263 Seg Neutrophils % 69.4 Sodium 128.8 L Potassium 3.9 Chloride 100 Carbon Dioxide 24 Anion Gap 5 BUN 8 Creatinine 0.49 L Est GFR ( Amer) > 60 Glucose 192 H Calcium 8.9 Total Bilirubin 0.7 AST 27 Alkaline Phosphatase 70 Total Protein 6.6 Albumin 3.3 L 03/22/20 01:43 CK-MB (CK-2) 0.58 Troponin I < 0.012 NT-Pro-B Natriuret Pep 198 H Impressions: Chest X-Ray 03/22/20 03:31 IMPRESSION: Left basilar airspace disease, new from prior and likely pneumonia. Assessment and Plan - Diagnosis (1) Sepsis Qualifiers: Sepsis type: sepsis due to unspecified organism Sepsis acute organ dysfunction status: without acute organ dysfunction Qualified Code(s): A41.9 - Sepsis, unspecified organism Is this a current diagnosis for this admission?: Yes Plan: Empiric Rocephin and azithromycin. Blood cultures obtained and are pending. She had a mild leukocytosis, fever per EMS, and was tachypneic at one point. She seems pretty comfortable now. (2) Community acquired pneumonia Qualifiers: Laterality: left Lung location: lower lobe of lung Qualified Code(s): J18.9 - Pneumonia, unspecified organism Is this a current diagnosis for this admission?: Yes Plan: Empiric Rocephin and azithromycin. Blood cultures pending. (3) Hyperlipidemia Qualifiers: Hyperlipidemia type: unspecified Qualified Code(s): E78.5 - Hyperlipidemia, unspecified Is this a current diagnosis for this admission?: Yes Plan: Continue lovastatin (4) COPD (chronic obstructive pulmonary disease) Qualifiers: COPD type: unspecified COPD Qualified Code(s): J44.9 - Chronic obstructive pulmonary disease, unspecified Is this a current diagnosis for this admission?: Yes Plan: Continue Symbicort and Atrovent, PRN nebulizer treatments (5) Hypertension Qualifiers: Hypertension type: essential hypertension Qualified Code(s): I10 - Essential (primary) hypertension Is this a current diagnosis for this admission?: Yes Plan: Continue amlodipine (6) Hyponatremia Is this a current diagnosis for this admission?: Yes Plan: She said this is a chronic issue for her, and that her primary care doctor told her to start adding more salt to her food. We will monitor. (7) Moderate protein-calorie malnutrition Is this a current diagnosis for this admission?: Yes Plan: We will encourage p.o. intake - Time Time Spent with patient: 35 or more minutes - Inpatient Certification Based on my medical assessment, after consideration of the patient's comorbidities, presenting symptoms, or acuity I expect that the services needed warrant INPATIENT care.: Yes I certify that my determination is in accordance with my understanding of Medicare's requirements for reasonable and necessary INPATIENT services [42 CFR 412.3e].: Yes Medical Necessity: Significant Comorbidiites Make Outpatient Treatment Too Risky, Need Close Monitoring Due to Risk of Patient Decompensation, Need For Continuous Telemetry Monitoring, Need for Nebulizer Therapy and Monitoring of Response, Need for IV Antibiotics, Risk of Complication if Not Cared For in Hospital
[2020-03-22] MEDS: IPRATROPIUM/ALBUTEROL 0.5-2.5 MG/3 ML AMPUL NEB PRN (10:54)
--- NOTE | 2020-03-22 13:14 | EKG REPORT ---
SEVERITY:- ABNORMAL ECG - SINUS RHYTHM SUPRAVENTRICULAR BIGEMINY : Confirmed by: Manuel Mandujano MD 22-Mar-2020 13:13:16
--- NOTE | 2020-03-22 13:38 | Progress Note ---
Provider Note Provider Note: Patient seen and evaluated by me. Patient is stable. Vital signs are stable. Medical reconciliation done. Continue plan as per prior provider. Nurse instructed to collect sputum cultures.
[2020-03-22] MEDS: AMLODIPINE BESYLATE 5 MG TABLET PO SCH (14:23)
[2020-03-22] MEDS: HEPARIN SOD (PORCINE) 5,000 UNIT/ML 1 ML VIAL SUBCUT SCH ×2 (14:24→21:47)
[2020-03-22] MEDS: IPRATROPIUM/ALBUTEROL 0.5-2.5 MG/3 ML AMPUL NEB SCH (16:12)
[2020-03-22] MEDS ORDERED: AZITHROMYCIN 500 MG in DEXTROSE 5%-WATER 250 ML IV SCH (22:00)
[2020-03-22] MEDS ORDERED: SIMVASTATIN 10 MG TABLET PO SCH (22:00)
[2020-03-22] MEDS ORDERED: CEFTRIAXONE 1 GM/D5W RTU 1 GM/50 ML RTUPB IV SCH (22:00)
[2020-03-23] MEDS: IPRATROPIUM/ALBUTEROL 0.5-2.5 MG/3 ML AMPUL NEB SCH ×2 (00:42→08:10)
[2020-03-23] MEDS: HEPARIN SOD (PORCINE) 5,000 UNIT/ML 1 ML VIAL SUBCUT SCH (05:11)
[2020-03-23] MEDS ORDERED: CEFTRIAXONE 1 GM/D5W RTU 1 GM/50 ML RTUPB IV SCH (06:00)
[2020-03-23 06:45] LABS: HEMATOCRIT 34.8 % (36.0-47.0); HEMOGLOBIN 11.9 g/dL (12.0-15.5); MEAN CORPUSCULAR HGB CONC 34.2 g/dL (32.0-36.0); MEAN CORPUSCULAR VOLUME 94 fl (80-97); PLATELET COUNT 249 10^3/uL (150-450); RED BLOOD COUNT 3.71 10^6/uL (3.72-5.28); RED CELL DISTRIBUTION WIDTH 14.4 % (11.5-14.0); WHITE BLOOD COUNT 8.9 10^3/uL (4.0-10.5)
[2020-03-23 07:08] LABS: BLOOD UREA NITROGEN 8 mg/dL (7-20); CALCIUM 8.9 mg/dL (8.4-10.2); GLUCOSE 108 mg/dL (75-110); POTASSIUM 4.1 mmol/L (3.6-5.0)
[2020-03-23 07:13] LABS: CARBON DIOXIDE 26 mmol/L (22-30); CHLORIDE 102 mmol/L (98-107)
[2020-03-23 07:16] LABS: ANION GAP 4 (5-19)
[2020-03-23] MEDS: AMLODIPINE BESYLATE 5 MG TABLET PO SCH (09:06)
--- NOTE | 2020-03-23 11:56 | PDOC DISCHARGE SUMMARY ---
Impression - Admit/DC Date/PCP Admission Date/Primary Care Provider: 03/22/20 06:48 ARSLAN TEJEDA MD Discharge Date: 03/23/20 - Discharge Diagnosis (1) Community acquired pneumonia Is this a current diagnosis for this admission?: Yes (2) COPD (chronic obstructive pulmonary disease) Is this a current diagnosis for this admission?: Yes (3) Hyperlipidemia Is this a current diagnosis for this admission?: Yes (4) Hyponatremia Is this a current diagnosis for this admission?: Yes (5) Moderate protein-calorie malnutrition Is this a current diagnosis for this admission?: Yes (6) Sepsis Is this a current diagnosis for this admission?: Yes (7) Hypertension Is this a current diagnosis for this admission?: Yes - Additional Information Discharge Diet: As Tolerated Discharge Activity: Activity As Tolerated Referrals: ARSLAN TEJEDA MD [Primary Care Provider] - Follow up as needed Prescriptions: Cefdinir 300 mg PO Q12 6 Days #6 capsule Guaifenesin 400 mg PO Q12 #10 tablet Azithromycin [Zithromax 250 mg Tablet] 250 mg PO DAILY #4 tablet Home Medications: Albuterol Sulfate [Albuterol Sulfate Hfa] 2 puff IH Q6HP PRN 03/23/15 Lovastatin 40 mg PO QHS #30 tablet 03/25/15 Amlodipine Besylate [Norvasc 5 mg Tablet] 5 mg PO DAILY 03/22/20 Fluticasone/Salmeterol [Advair 250-50 Diskus 14 Dose/Diskus] 1 inh IH Q12 03/22/20 Ipratropium/Albuterol Sulfate [Duoneb 3 ml Ampul] 3 ml NEB RTQIDP PRN 03/22/20 Azithromycin [Zithromax 250 mg Tablet] 250 mg PO DAILY #4 tablet 03/23/20 Cefdinir 300 mg PO Q12 6 Days #6 capsule 03/23/20 Guaifenesin 400 mg PO Q12 #10 tablet 03/23/20 History of Present Illiness History of Present Illness: According to admitting provider: SANTO MANDUJANO is a 70 year old female with a history of hypertension, hyperlipidemia, and COPD who presents with shortness of breath. She said it happened around midnight when she got up to go to the bathroom. She said when she went to bed and for several days preceding she felt fine and in her usual state of health. She had an elevated temperature in the ER but she denies having had a fever at home. She denies aspirating or having a history of aspiration. She apparently had a little bit of wheezing when she first came in but after couple of breathing treatments she says she is breathing fine. She is on room air. She does not use oxygen at home. Chest x-ray showed suspicion of a left lower lobe opacity. Hospital Course Hospital Course: Patient was admitted to the hospital for evaluation of and treatment of pneumonia. Chest x-ray revealed developing pneumonia in the lungs. Lab work was consistent with leukocytosis. Patient also had a mildly elevated temperature. Patient was also tachycardic and tachypneic (initial presentation. Patient was thought to have sepsis and was admitted to the hospital for IV fluids and IV antibiotics administration. Blood cultures were obtained which have been negative at 24-hour bola. Sputum cultures also obtained. Patient was started on ceftriaxone and azithromycin for community-acquired likely bacterial pneumonia. COVID-19 rapid test was negative. Patient has continued to do well and leukocytosis has resolved at this point. Patient has also remained comfortable on room air. She denies any shortness of breath at this point. Patient will be discharged home on cefdinir and azithromycin to complete 7 days of therapy and 5 days of azithromycin. Patient also had some hyponatremia likely secondary to low caloric intake and dehydration. Hyponatremia has improved to 131 from 128 after administration of IV fluids. Patient be safely discharged. Physical Exam Vital Signs: Temp Pulse Resp BP Pulse Ox 98.4 F 86 16 120/55 L 97 03/23/20 07:27 03/23/20 08:10 03/23/20 08:10 03/23/20 07:27 03/23/20 08:10 Intake & Output 03/22/20 03/23/20 03/24/20 06:59 06:59 06:59 Intake Total 1180 Output Total 1300 Balance -120 Weight 39.6 kg 39.9 kg General appearance: PRESENT: no acute distress, cooperative Neck exam: ABSENT: JVD Respiratory exam: PRESENT: clear to auscultation julio, unlabored. ABSENT: accessory muscle use, retraction, tachypnea Cardiovascular exam: ABSENT: tachycardia Neurological exam: PRESENT: alert, awake Results Laboratory Results: WBC 8.9 10^3/uL (4.0-10.5) 03/23/20 06:10 RBC 3.71 10^6/uL (3.72-5.28) L 03/23/20 06:10 Hgb 11.9 g/dL (12.0-15.5) L 03/23/20 06:10 Hct 34.8 % (36.0-47.0) L 03/23/20 06:10 MCV 94 fl (80-97) 03/23/20 06:10 MCH 32.0 pg (27.0-33.4) 03/23/20 06:10 MCHC 34.2 g/dL (32.0-36.0) 03/23/20 06:10 RDW 14.4 % (11.5-14.0) H 03/23/20 06:10 Plt Count 249 10^3/uL (150-450) 03/23/20 06:10 Lymph % (Auto) 11.4 % (13-45) L 03/22/20 01:43 Emmet % (Auto) 18.8 % (3-13) H 03/22/20 01:43 Eos % (Auto) 0.1 % (0-6) 03/22/20 01:43 Baso % (Auto) 0.3 % (0-2) 03/22/20 01:43 Absolute Neuts (auto) 7.8 10^3/uL (1.7-8.2) 03/22/20 01:43 Absolute Lymphs (auto) 1.3 10^3/uL (0.5-4.7) 03/22/20 01:43 Absolute Monos (auto) 2.1 10^3/uL (0.1-1.4) H 03/22/20 01:43 Absolute Eos (auto) 0.0 10^3/uL (0.0-0.6) 03/22/20 01:43 Absolute Basos (auto) 0.0 10^3/uL (0.0-0.2) 03/22/20 01:43 Seg Neutrophils % 69.4 % (42-78) 03/22/20 01:43 Sodium 131.9 mmol/L (137-145) L 03/23/20 06:10 Potassium 4.1 mmol/L (3.6-5.0) 03/23/20 06:10 Chloride 102 mmol/L (98-107) 03/23/20 06:10 Carbon Dioxide 26 mmol/L (22-30) 03/23/20 06:10 Anion Gap 4 (5-19) L 03/23/20 06:10 BUN 8 mg/dL (7-20) 03/23/20 06:10 Creatinine 0.44 mg/dL (0.52-1.25) L 03/23/20 06:10 Est GFR ( Amer) > 60 (>60) 03/23/20 06:10 Est GFR (MDRD) Non-Af > 60 (>60) 03/23/20 06:10 Glucose 108 mg/dL (75-110) 03/23/20 06:10 Calcium 8.9 mg/dL (8.4-10.2) 03/23/20 06:10 Total Bilirubin 0.7 mg/dL (0.2-1.3) 03/22/20 01:43 Direct Bilirubin 0.1 mg/dL (0.0-0.4) 03/22/20 01:43 Neonat Total Bilirubin Not Reportable 03/22/20 01:43 Neonat Direct Bilirubin Not Reportable 03/22/20 01:43 Neonat Indirect Bili Not Reportable 03/22/20 01:43 AST 27 U/L (14-36) 03/22/20 01:43 ALT 16 U/L (<35) 03/22/20 01:43 Alkaline Phosphatase 70 U/L (38-126) 03/22/20 01:43 CK-MB (CK-2) 0.58 ng/mL (<4.55) 03/22/20 01:43 Troponin I < 0.012 ng/mL 03/22/20 01:43 NT-Pro-B Natriuret Pep 198 pg/mL (<125) H 03/22/20 01:43 Total Protein 6.6 g/dL (6.3-8.2) 03/22/20 01:43 Albumin 3.3 g/dL (3.5-5.0) L 03/22/20 01:43 SARS-CoV-2 (PCR) NEGATIVE (NEGATIVE) 03/22/20 04:24 03/22/20 01:43 CK-MB (CK-2) 0.58 Troponin I < 0.012 NT-Pro-B Natriuret Pep 198 H Impressions: Chest X-Ray 03/22/20 03:31 IMPRESSION: Left basilar airspace disease, new from prior and likely pneumonia. Plan Time Spent: Less than 30 Minutes Stroke Is this a Stroke Patient?: No Acute Heart Failure - Is this a Heart Failure Patient?: No
[2020-03-23 12:23] VITALS: BP 121/54
[2020-03-23] MEDS: IPRATROPIUM/ALBUTEROL 0.5-2.5 MG/3 ML AMPUL NEB PRN (13:18)
== END 2020-03-23 14:00 | disposition home or self-care (01) | DRG 194 ==
LOC: ER 01:26 → EH 06:48 → 4W 11:40
PROVIDERS: ADMIT Family Medicine; ATTEND Internal Medicine
DX: J18.9 Pneumonia, unspecified organism (principal); E87.1 Hypo-osmolality and hyponatremia; E44.0 Moderate protein-calorie malnutrition; J44.0 Chronic obstructive pulmonary disease with (acute) lower respiratory infection; I10 Essential (primary) hypertension; E86.0 Dehydration; E78.5 Hyperlipidemia, unspecified; J44.9 Chronic obstructive pulmonary disease, unspecified; E11.9 Type 2 diabetes mellitus without complications; F17.200 Nicotine dependence, unspecified, uncomplicated; Z79.51 Long term (current) use of inhaled steroids; Z88.8 Allergy status to other drugs, medicaments and biological substances; Z20.828 Contact with and (suspected) exposure to other viral communicable diseases
CPT/HCPCS: 36415; 71045; 80048; 80053; 82553; 83880; 84484; 85025; 85027; 87040; 87070; 87077; 87150; 87186; 87205; 87635; 93005; 93010; 94640; 96365; 96368; 99285; C9803; J0456; J0696; J1644; J7060